=== PATIENT | male | born 1970 | race Caucasian/White ===

== ENCOUNTER 2016-11-16 09:07 | Inpatient (IN) | payer MEDICARE, MEDICAID ==
[~2016-11-16] VITALS: Ht 180.3 cm; Wt 86.5 kg
[2016-11-16] VITALS (11 sets, daily range): BP systolic 159–176; BP diastolic 83–110; PULSE 94–107; RESP 15–25; TEMP 97.2–98.5; O2SAT 95–100
[~2016-11-16 09:07] MED LIST: LISI-363 PO; OXYC-103 PO; PROM25SU8 PO
--- NOTE | 2016-11-16 09:22 | PD ---
HPI Chief Complaint: abdominal pain Time Seen by Provider: 09:15 Travel History International Travel<30 days: No Contact w/Intl Traveler<30days: No History of Present Illness HPI This is a 45-year-old male who presents to the emergency department with onset about 3 hours ago of epigastric pain described as chest pain, constant, severe, nonradiating, associated with some nausea but no vomiting. He's never had pain like this before. He denies any shortness of breath but it does hurt when he takes a deep breath. He does drink alcohol every day, 4-5 drinks, and was drinking yesterday. He has a history of hypertension but denies diabetes or hyperlipidemia. He does smoke cigarettes. PFSH Past Medical History Blood Disorders: No Anxiety: Yes Depression: No Cardiovascular Problems: No Chemotherapy: No Cerebrovascular Accident: Yes (POSSIBLE) Diminished Hearing: No Gastrointestinal Disorders: No Genitourinary: No Headaches: No Hypertension: Yes Immune Disorder: No Musculoskeletal: Yes (BACK PAIN) Neurologic: Yes (STROKE) Psychiatric: Yes (PTSD) Reproductive: No Respiratory: No Immunizations Current: No Migraines: No Past Surgical History Abdominal Surgery: No Arteriovenous Shunt: No Cardiac Surgery: No Ear Surgery: No Endocrine Surgery: No Eye Surgery: No Genitourinary Surgery: No Gynecologic Surgery: No Insulin Pump: No Joint Replacement: No Neurologic Surgery: No Pacemaker: No Thoracic Surgery: No Other Surgery: Yes Social History Alcohol Use: Yes (3 TIMES A WEEK) Tobacco Use: No Substance Use: No Allergies-Medications (Allergen,Severity, Reaction): Coded Allergies: Lobster (Verified Allergy, Severe, Throat swelling, 11/16/16) Reported Meds & Prescriptions Reported Meds & Active Scripts Active Reported Amlodipine (Amlodipine Besylate) 5 Mg Tab 5 Mg PO DAILY Cymbalta DR (Duloxetine HCl) 20 Mg Capdr 20 Mg PO DAILY Review of Systems Except as stated in HPI: all other systems reviewed are Neg Physical Exam Narrative GENERAL: Uncomfortable appearing, moaning in pain. SKIN: Warm and dry. HEAD: Atraumatic. Normocephalic. EYES: Pupils equal and round. No injection or drainage. ENT: Moist mucous membranes NECK: Trachea midline. CARDIOVASCULAR: Regular rate and rhythm. No murmur appreciated. RESPIRATORY: Clear to auscultation. Breath sounds equal bilaterally. GASTROINTESTINAL: Abdomen soft, tender to palpation in the upper abdomen, worse in the epigastrium with no rebound or guarding. MUSCULOSKELETAL: No obvious deformities. NEUROLOGICAL: Awake and alert. No obvious cranial nerve deficits. Moving all extremities. PSYCHIATRIC: Appropriate mood and affect; insight and judgment normal. Data Data Last Documented VS Vital Signs Date Time Temp Pulse Resp B/P Pulse Ox O2 Delivery O2 Flow Rate FiO2 11/16/16 11:00 102 18 162/83 99 Room Air 11/16/16 09:20 98.1 Orders Electrocardiogram (11/16/16:20) Complete Blood Count With Diff (11/16/16:20) Comprehensive Metabolic Panel (11/16/16:20) Troponin I (11/16/16:20) Lipase (11/16/16:20) Chest, Single Ap (11/16/16:20) Ecg Monitoring (11/16/16 09:20) Bilateral Bp Monitoring (11/16/16 09:20) Iv Access Insert/Monitor (11/16/16:20) Oximetry (11/16/16 09:20) Oxygen Administration (11/16/16 09:20) Sodium Chloride 0.9% Flush (Ns Flush) (11/16/16 09:30) Hydromorphone Pf Inj (Dilaudid Pf Inj) (11/16/16 09:30) Ondansetron Inj (Zofran Inj) (11/16/16 09:30) Sodium Chlor 0.9% 1000 Ml Inj (Ns 1000 M (11/16/16 09:30) Hydromorphone Pf Inj (Dilaudid Pf Inj) (11/16/16 11:15) Us Abdomen Gallbladder (11/16/16 ) Labs Laboratory Tests Test 11/16/16 09:20 White Blood Count 10.9 TH/MM3 Red Blood Count 5.05 MIL/MM3 Hemoglobin 16.7 GM/DL Hematocrit 48.7 % Mean Corpuscular Volume 96.5 FL Mean Corpuscular Hemoglobin 33.1 PG Mean Corpuscular Hemoglobin 34.3 % Concent Red Cell Distribution Width 12.9 % Platelet Count 255 TH/MM3 Mean Platelet Volume 8.0 FL Neutrophils (%) (Auto) 77.7 % Lymphocytes (%) (Auto) 15.8 % Monocytes (%) (Auto) 4.7 % Eosinophils (%) (Auto) 0.9 % Basophils (%) (Auto) 0.9 % Neutrophils # (Auto) 8.5 TH/MM3 Lymphocytes # (Auto) 1.7 TH/MM3 Monocytes # (Auto) 0.5 TH/MM3 Eosinophils # (Auto) 0.1 TH/MM3 Basophils # (Auto) 0.1 TH/MM3 CBC Comment DIFF FINAL Differential Comment Sodium Level 139 MEQ/L Potassium Level 3.4 MEQ/L Chloride Level 99 MEQ/L Carbon Dioxide Level 27.1 MEQ/L Anion Gap 12 MEQ/L Blood Urea Nitrogen 12 MG/DL Creatinine 1.00 MG/DL Estimat Glomerular Filtration 81 ML/MIN Rate Random Glucose 136 MG/DL Calcium Level 8.8 MG/DL Total Bilirubin 0.9 MG/DL Aspartate Amino Transf 88 U/L (AST/SGOT) Alanine Aminotransferase 131 U/L (ALT/SGPT) Alkaline Phosphatase 68 U/L Troponin I LESS THAN 0.02 NG/ML Total Protein 8.0 GM/DL Albumin 4.0 GM/DL Lipase 5208 U/L [facility] Medical Decision Making Medical Screen Exam Complete: Yes Emergency Medical Condition: Yes Interpretation(s) Afebrile, tachycardic, hypertensive No leukocytosis Mild hypokalemia Transaminitis Lipase is 5208 Differential Diagnosis Acute pancreatitis, gastritis, myocardial infarction, perforated ulcer Narrative Course This is a 45-year-old male who presents to the emergency department with acute onset abdominal pain that started this morning. He drinks alcohol daily, 3-4 drinks per day. He was placed on a monitor and an IV was established. Labs are obtained which demonstrate a lipase of 5208. He has no leukocytosis to suggest necrotizing pancreatitis. I don't think imaging is warranted at this time. I did order a right upper quadrant ultrasound to exclude gallstones as an etiology of his symptoms however I suspect this is alcoholic pancreatitis. Patient was given 2 mg of IV Dilaudid. He continued to have pain. He will be admitted for pain control and IV hydration. Diagnosis Primary Impression: Acute pancreatitis Admitting Information Admitting Physician Requests: Admit Dalila Gusman MD Nov 16, 2016 09:22
[2016-11-16] MEDS ORDERED: DULO20 PO (09:29)
[2016-11-16] MEDS ORDERED: AMLO5TAB2 PO (09:29)
[2016-11-16] MEDS ORDERED: SODIUM CHLORIDE 0.9% FLUSH 5 ML FLUSH IVF PRN (09:30)
[2016-11-16] MEDS ORDERED: HYDROmorphone HCL PF 1 MG/ML VIAL IV PUSH ONE ×2 (09:30→11:15)
[2016-11-16] MEDS ORDERED: ONDANSETRON HCL 4 MG/2 ML VIAL IV PUSH ONE (09:30)
[2016-11-16] MEDS ORDERED: SODIUM CHLOR 0.9% 1000 ML INJ 1,000 ML IV ONE (09:30)
[2016-11-16 09:41] LABS: AUTOMATED NEUTROPHIL # 8.5 TH/MM3 (1.8-7.7); BASOPHIL # 0.1 TH/MM3 (0-0.2); BASOPHIL % 0.9 % (0.0-2.0); EOSINOPHIL # 0.1 TH/MM3 (0-0.4); EOSINOPHIL % 0.9 % (0.0-4.0); HEMATOCRIT 48.7 % (39.0-51.0); HEMO FLAGS DIFF FINAL; LYMPH % 15.8 % (9.0-44.0); LYMPHOCYTE # 1.7 TH/MM3 (1.0-4.8); MEAN CELL VOLUME 96.5 FL (80.0-100.0); MEAN CORPUSCULAR HEMOGLOBIN 33.1 PG (27.0-34.0); MEAN CORPUSCULAR HGB CONC 34.3 % (32.0-36.0); MONO % 4.7 % (0.0-8.0); NEUT % 77.7 % (16.0-70.0); PLATELET COUNT 255 TH/MM3 (150-450); RED BLOOD COUNT 5.05 MIL/MM3 (4.50-5.90); RED CELL DISTRIBUTION WIDTH 12.9 % (11.6-17.2); WHITE BLOOD COUNT 10.9 TH/MM3 (4.0-11.0)
--- NOTE | 2016-11-16 09:44 | RADHPO ---
EXAM DATE/TIME: 11/16/2016 09:33 [facility] COMPARISON: No previous studies available for comparison. INDICATIONS : Sudden onset of severe chest pain this am MEDICAL HISTORY : None. SURGICAL HISTORY : None. ENCOUNTER: Initial ACUITY: 1 day PAIN SCORE: 10/10 LOCATION: Bilateral chest FINDINGS: A single view of the chest demonstrates the lungs to be symmetrically aerated without evidence of mas s, infiltrate or effusion. The cardiomediastinal contours are unremarkable. Osseous structures are intact. CONCLUSION: Normal examination for a patient of this age. Vaughn Sewell MD on November 16, 2016 at 9:42 Board Certified Radiologist. This report was verified electronically.
[2016-11-16 09:55] LABS: BLOOD UREA NITROGEN 12 MG/DL (7-18)
[2016-11-16 09:56] LABS: CHLORIDE 99 MEQ/L (98-107); GLOMERULAR FILTRATION RATE 81 ML/MIN (>89); POTASSIUM 3.4 MEQ/L (3.5-5.1); SODIUM (NA) 139 MEQ/L (136-145)
[2016-11-16 10:16] LABS: ANION GAP 12 MEQ/L (5-15)
[2016-11-16 10:29] LABS: ALKALINE PHOSPHATASE 68 U/L (45-117); ALT (GPT) 131 U/L (12-78); AST (GOT) 88 U/L (15-37); BICARBONATE 27.1 MEQ/L (21.0-32.0); TOTAL BILIRUBIN ADULT 0.9 MG/DL (0.2-1.0)
[2016-11-16] MEDS ORDERED: SODIUM CHLOR 0.9% 1000 ML INJ 1,000 ML IV SCH (11:36)
[2016-11-16] MEDS ORDERED: ACETAMINOPHEN 325 MG TAB PO PRN (11:45)
[2016-11-16] MEDS ORDERED: NALOXONE HCL 0.4 MG/ML AMP IV PRN (11:45)
[2016-11-16] MEDS ORDERED: ONDANSETRON HCL 4 MG/2 ML VIAL IVP PRN (11:45)
[2016-11-16] MEDS: HEPARIN SODIUM - SQ 10,000 UNITS/ML VIAL SQ SCH ×2 (11:58→20:17)
[2016-11-16] MEDS ORDERED: PILL SPLITTER OTHER PRN (12:00)
[2016-11-16] MEDS: HYDROmorphone HCL PF 1 MG/ML VIAL IV PRN ×3 (13:11→21:09)
--- NOTE | 2016-11-16 13:29 | RADHPO ---
EXAM DATE/TIME: 11/16/2016 12:27 [facility] COMPARISON: No previous studies available for comparison. INDICATIONS : Evaluate for cholelithiasis. Epigastric pain and nausea. MEDICAL HISTORY : Hypertension. Stroke. PTSD. SURGICAL HISTORY : None. ENCOUNTER: Initial ACUITY: 1 day PAIN SCORE: 10/10 LOCATION: Right upper quadrant MEASUREMENTS: LIVER: 17.1 cm length COMMON DUCT: 6 mm RIGHT KIDNEY: 9.9 x 6.8 x 7.1 cm FINDINGS: LIVER: The liver is enlarged and diffusely increased echogenicity. There is questionable recannulization of the umbilical vein there is no focal mass or ductal dilatation. There is no ascites. COMMON DUCT: No intraluminal mass or stone visualized. GALLBLADDER: Contains no stones, demonstrates no wall thickening or pericholecystic fluid. PANCREAS: The visualized portions are within normal limits. RIGHT KIDNEY: No evidence of hydronephrosis, stone, or mass. CONCLUSION: 1. The gallbladder is unremarkable in appearance with no evidence of cholelithiasis. 2. The liver is enlarged with increased echogenicity. There is no focal mass. This questionable recan nulization of the umbilical vein. The left lobe was not well-visualized. Hussain Love MD on November 16, 2016 at 13:21 Board Certified Radiologist. This report was verified electronically.
--- NOTE | 2016-11-16 15:25 | EKG ---
Date Performed: 11/16/2016 Time Performed: 09:11:18 PTAGE: 45 years EKG: Sinus tachycardia. Left axis deviation Possible inferior infarct - age undetermined Abnorma l ECG Compared to prior electrocardiogram,Rate has increased. PREVIOUS TRACING : 02/18/2007 22.21 DOCTOR: Sheldon Loredo Interpretating Date/Time 11/16/2016 15:23:15
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
[2016-11-16] MEDS ORDERED: ENALAPRILAT 1.25 MG/ML VIAL IV PUSH PRN (17:00)
[2016-11-16] MEDS: NS + KCL 20 MEQ INJ 1,000 ML IV SCH (17:06)
[2016-11-16] MEDS: SODIUM CHLORIDE 0.9% FLUSH 5 ML FLUSH FLUSH SCH (20:17)
[2016-11-17] VITALS (8 sets, daily range): BP systolic 133–156; BP diastolic 84–95; PULSE 84–96; RESP 16–22; TEMP 97.9–98.6; O2SAT 93–96
[2016-11-17] MEDS: NS + KCL 20 MEQ INJ 1,000 ML IV SCH ×3 (01:08→16:15)
[2016-11-17] MEDS: HYDROmorphone HCL PF 1 MG/ML VIAL IV PRN ×6 (01:09→21:36)
[2016-11-17] MEDS: HEPARIN SODIUM - SQ 10,000 UNITS/ML VIAL SQ SCH ×3 (05:11→20:07)
[2016-11-17 06:02] LABS: POTASSIUM 3.9 MEQ/L (3.5-5.1)
[2016-11-17 06:04] LABS: AUTOMATED NEUTROPHIL # 5.2 TH/MM3 (1.8-7.7); BASOPHIL % 0.6 % (0.0-2.0); EOSINOPHIL # 0.2 TH/MM3 (0-0.4); EOSINOPHIL % 2.9 % (0.0-4.0); HEMATOCRIT 44.9 % (39.0-51.0); HEMO FLAGS DIFF FINAL; LYMPH % 17.7 % (9.0-44.0); LYMPHOCYTE # 1.3 TH/MM3 (1.0-4.8); MEAN CELL VOLUME 97.8 FL (80.0-100.0); MEAN CORPUSCULAR HEMOGLOBIN 32.5 PG (27.0-34.0); MEAN CORPUSCULAR HGB CONC 33.2 % (32.0-36.0); MONO % 5.4 % (0.0-8.0); NEUT % 73.4 % (16.0-70.0); PLATELET COUNT 201 TH/MM3 (150-450); PROTHROMBIN TIME - PATIENT 10.7 SEC (9.8-11.6); RED BLOOD COUNT 4.59 MIL/MM3 (4.50-5.90); RED CELL DISTRIBUTION WIDTH 12.8 % (11.6-17.2); WHITE BLOOD COUNT 7.1 TH/MM3 (4.0-11.0)
[2016-11-17 06:32] LABS: BICARBONATE 26.6 MEQ/L (21.0-32.0); INDIRECT BILIRUBIN 1.1 MG/DL (0.0-0.8); TOTAL BILIRUBIN ADULT 1.4 MG/DL (0.2-1.0)
[2016-11-17] MEDS ORDERED: amLODIPine BESYLATE 5 MG TAB PO SCH (09:00)
[2016-11-17] MEDS: SODIUM CHLORIDE 0.9% FLUSH 5 ML FLUSH FLUSH SCH ×2 (09:00→20:07)
--- NOTE | 2016-11-17 09:03 | HHI.PR ---
Subjective Remarks Patient seen and examined today with Dr. Garcia. Patient states that he is doing better. Pain is less than yesterday but still around 6 out of 10 according to the patient but then he stated Pain is controlled !. He does have some appetite back but does not want to eat anything big meals. Objective Vitals Vital Signs Date Time Temp Pulse Resp B/P Pulse Ox O2 Delivery O2 Flow Rate FiO2 11/17/16 08:30 95 21 11/17/16 08:00 92 11/17/16 08:00 98.6 96 22 152/87 95 11/17/16 04:00 98.3 95 22 133/91 95 11/17/16 00:00 94 11/17/16 00:00 98.5 92 18 133/92 95 11/16/16 20:20 97 21 11/16/16 20:00 94 11/16/16 20:00 98.5 100 22 165/95 95 11/16/16 17:24 98 20 175/90 11/16/16 17:00 98 25 11/16/16 16:35 97.2 100 15 159/110 97 11/16/16 16:30 98 11/16/16 14:40 105 16 169/98 98 Room Air 11/16/16 14:02 98 16 160/99 100 Room Air 11/16/16 13:41 16 11/16/16 11:45 18 11/16/16 11:00 102 18 162/83 99 Room Air 11/16/16 10:10 18 11/16/16 09:25 97 Room Air 11/16/16 09:25 97 Room Air 11/16/16 09:20 98.1 107 18 176/101 97 I/O 11/16/16 11/16/16 11/16/16 11/17/16 11/17/16 11/17/16 07:00 15:00 23:00 07:00 15:00 23:00 Intake Total 1000 ml 727 ml 826 ml Output Total 450 ml 675 ml Balance 1000 ml 277 ml 151 ml Intake Oral 0 ml 0 ml IV Total 1000 ml 727 ml 826 ml Output Urine Total 450 ml 675 ml # Voids 3 Result Diagram: 11/17/16 0543 11/17/1643 Objective Remarks GENERAL: Well-developed, well-nourished, in no acute distress. alert and orientated HEENT: Head is normocephalic without any lesions or masses noted. Facial features are symmetric. Eyes: Extraocular muscles are intact. Conjunctivae were clear. NECK: Supple without any masses. Trachea midline no deviation. No JVD, CARDIAC: Regular rhythm, regular rate. S1/S2 are heard. No murmurs gallops or rubs. LUNGS: Clear to auscultation bilaterally. No wheeze, rhonchi or rales. No use of accessory muscles on inspiration or expiration. ABDOMEN: Soft, mild diffuse tenderness noted in epigastric, bilateral upper quadrants. Nondistended. Bowel sounds heard in all 4 quadrants. No organomegaly or masses. Negative rebound, negative guarding EXTREMITIES: No edema, pulses are equal bilaterally. No cyanosis or clubbing NEUROLOGY: Mood and affect appear appropriate. Cranial nerves II through XII grossly intact. Moving all extremities, speech is clear Urinary Catheter: No Vascular Central Line Catheter: No A/P Assessment and Plan Acute epigastric abdominal pain with elevated lipase 5208: Improving. Likely alcoholic pancreatitis until proven otherwise. Start clear liquid diet, IV fluids, pain control with Dilaudid. Normal triglyceride level, liver ultrasound was performed no gallstone but increased liver echogenicity, along with increase direct and indirect bilirubin as well as LFTs initially which is trending down, I will order CT of the abdomen with oral contrast along with hepatitis panel to assess for any underlying liver pathology, doesn't seem to be related to his pancreatitis at this point. Patient can probably follow up with the welder/installer as an outpatient when he stable --Increase LFT transaminases with direct and indirect bilirubin: Alkaline phosphatase within normal limits unlikely cholestasis, check hepatitis panel, check CT abdomen as above Chronic alcohol use: Patient does have mildly elevated liver enzymes, now with elevated lipase. Patient was counseled extensively on discontinuation of alcohol use. Notified him that this is alcohol pancreatitis in all his current intake is 1 alcoholic beverage and he could be back in the same predicament. Patient states that he does understand and plans on quitting at this time Uncontrolled hypertension: Resume amlodipine, added Vasotec as needed monitor blood pressure. Increase to amlodipine 10 mg daily DVT prevention: Sequential compression devices. Heparin Written by Shahzad Burrows PA-C, acting as scribe for Dr. Garcia on 11/17/16 at. The documentation accurately reflects the work and decisions performed face-to- face by Dr. Garcia on 11/17/16 at Discharge Planning The patient continues to improve alveolar discharge patient tomorrow. Shahzad Burrows Nov 17, 2016 09:03 Anthony Garcia MD Nov 17, 2016 13:09
[2016-11-17] MEDS ORDERED: LORazepam 2 MG/ML VIAL IV PUSH PRN (09:15)
[2016-11-17] MEDS ORDERED: PNEUMOCOCCAL POLYVALENT INJ 25 MCG/0.5 ML SYR IM ONE (10:00)
[2016-11-17] MEDS: FOLIC ACID 1 MG TAB PO SCH (11:27)
[2016-11-17] MEDS: THIAMINE HCL 100 MG TAB PO SCH (11:27)
[2016-11-17] MEDS ORDERED: DIATRIZOATE MEGLUM/DIATRIZOATE SOD 9 ML CUP PO ONE (11:45)
[2016-11-17 13:34] LABS: GLUCOSE,URINE NEG (NEG); KETONE, URINE 15 mg/dL (NEG); NITRITE,URINE NEG (NEG); PH, URINE 6.5 (5.0-8.5)
[2016-11-17 13:35] LABS: BLOOD, URINE MOD (NEG)
[2016-11-17 13:38] LABS: METHOD OF COLLECTION CLEAN CATCH; URINE COLOR STRAW (YELLW/STRAW); WBC, URINE 0-2 /hpf (0-5)
[2016-11-17 13:39] LABS: COMMENT (UR) CULT NOT INDICATED; CULTURE IF INDICATED CULT NOT INDICATED; SQUAMOUS EPITHELIAL CELL URINE 0-5 /hpf (0-5)
--- NOTE | 2016-11-17 21:12 | RADHPO ---
EXAM DATE/TIME: 11/17/2016 19:49 [facility] COMPARISON: US ABDOMEN - GALLBLADDER, November 16, 2016, 12:27. INDICATIONS : Diffuse abdominal pain. ORAL CONTRAST: Prescribed oral contrast ingested. RADIATION DOSE: 20.96 CTDIvol (mGy) MEDICAL HISTORY : Hypertension. Pancreatitis. SURGICAL HISTORY : None. ENCOUNTER: Initial ACUITY: 2 days PAIN SCALE: 6/10 LOCATION: Abdomen. TECHNIQUE: Volumetric scanning of the abdomen and pelvis was performed. Using automated exposure control and ad justment of the mA and/or kV according to patient size, radiation dose was kept as low as reasonably achievable to obtain optimal diagnostic quality images. FINDINGS: LOWER LUNGS: The visualized lower lungs are clear. LIVER: Severe hepatic steatosis without lesion. There is no dilation of the biliary tree. No calcified gal lstones. SPLEEN: Normal size without lesion. PANCREAS: Slight inflammatory changes along the pancreatic head. KIDNEYS: Normal in size and shape. There is no mass, stone, or hydronephrosis. ADRENAL GLANDS: Within normal limits. VASCULAR: There is no aortic aneurysm. BOWEL/MESENTERY: Scattered diverticulosis. There is no free intraperitoneal air or fluid. Scattered inflammatory [place] in the retroperitoneum with fluid tracking in the pelvis. ABDOMINAL WALL: Within normal limits. RETROPERITONEUM: There is no lymphadenopathy. BLADDER: No wall thickening or mass. REPRODUCTIVE: Within normal limits. INGUINAL: There is no lymphadenopathy or hernia. MUSCULOSKELETAL: Within normal limits for patient age. CONCLUSION: 1. Severe hepatic steatosis. 2. Slight inflammatory changes along the pancreatic head could be related to pancreatitis in the righ t clinical setting. There is also some slight inflammatory change in the retroperitoneum with some mi nimal fluid tracking in the pelvis. Correlation with amylase and lipase levels recommended. 3. Scattered diverticulosis. Neal Coleman MD on November 17, 2016 at 21:02 Board Certified Radiologist. This report was verified electronically.
[2016-11-18] VITALS: BP 150/95; PULSE 84; RESP 22; TEMP 99; O2SAT 95
[2016-11-18] MEDS: NS + KCL 20 MEQ INJ 1,000 ML IV SCH ×3 (00:37→17:02)
[2016-11-18] MEDS: HYDROmorphone HCL PF 1 MG/ML VIAL IV PRN ×5 (01:45→20:08)
[2016-11-18 04:00] VITALS: BP 129/79; PULSE 80; RESP 16; TEMP 98.2; O2SAT 95
[2016-11-18] MEDS: HEPARIN SODIUM - SQ 10,000 UNITS/ML VIAL SQ SCH ×3 (04:42→19:52)
[2016-11-18 05:22] LABS: CHLORIDE 102 MEQ/L (98-107); POTASSIUM 3.8 MEQ/L (3.5-5.1); SODIUM (NA) 139 MEQ/L (136-145)
[2016-11-18 05:27] LABS: ANION GAP 13 MEQ/L (5-15); AUTOMATED NEUTROPHIL # 4.4 TH/MM3 (1.8-7.7); BASOPHIL % 0.3 % (0.0-2.0); BLOOD UREA NITROGEN 8 MG/DL (7-18); EOSINOPHIL # 0.3 TH/MM3 (0-0.4); EOSINOPHIL % 5.4 % (0.0-4.0); HEMATOCRIT 46.6 % (39.0-51.0); HEMO FLAGS DIFF FINAL; LYMPH % 20.3 % (9.0-44.0); LYMPHOCYTE # 1.3 TH/MM3 (1.0-4.8); MEAN CELL VOLUME 97.6 FL (80.0-100.0); MEAN CORPUSCULAR HEMOGLOBIN 32.3 PG (27.0-34.0); MEAN CORPUSCULAR HGB CONC 33.1 % (32.0-36.0); PLATELET COUNT 211 TH/MM3 (150-450); RED BLOOD COUNT 4.78 MIL/MM3 (4.50-5.90); RED CELL DISTRIBUTION WIDTH 12.7 % (11.6-17.2); WHITE BLOOD COUNT 6.4 TH/MM3 (4.0-11.0)
[2016-11-18 05:30] LABS: ALT (GPT) 68 U/L (12-78); AST (GOT) 30 U/L (15-37); GLOMERULAR FILTRATION RATE 95 ML/MIN (>89)
[2016-11-18 05:31] LABS: TOTAL BILIRUBIN ADULT 1.9 MG/DL (0.2-1.0)
[2016-11-18 05:33] LABS: ALKALINE PHOSPHATASE 58 U/L (45-117)
[2016-11-18 08:00] VITALS: BP 155/88; PULSE 82; PULSE 83; RESP 13; TEMP 98.5; O2SAT 99
--- NOTE | 2016-11-18 08:50 | HHI.PR ---
Subjective Remarks Patient seen and examined today with Dr. Garcia. Patient states he is doing better. His appetite has returned. Tolerating liquids without any complications. States that the pain is starting referred down to the right lower quadrant. Discussed with patient the results of the CT scan. Objective Vitals Vital Signs Date Time Temp Pulse Resp B/P Pulse Ox O2 Delivery O2 Flow Rate FiO2 11/18/16 04:00 98.2 80 16 129/79 95 11/18/16 02:15 16 11/18/16 00:00 99.0 84 22 150/95 95 11/17/16 20:17 96 21 11/17/16 20:00 87 11/17/16 20:00 98.6 88 19 140/84 95 11/17/16 16:00 98.3 84 16 141/95 93 11/17/16 12:00 97.9 84 18 156/91 94 I/O 11/17/16 11/17/16 11/17/16 11/18/16 11/18/16 11/18/16 07:00 15:00 23:00 07:00 15:00 23:00 Intake Total 826 ml 1598 ml 2025 ml 924 ml Output Total 675 ml 900 ml 1350 ml 1600 ml Balance 151 ml 698 ml 675 ml -676 ml Intake Oral 0 ml 520 ml 1000 ml 0 ml IV Total 826 ml 1078 ml 1025 ml 924 ml Output Urine Total 675 ml 900 ml 1350 ml 1600 ml # Bowel Movements 0 0 0 Result Diagram: 11/18/16 0425 11/18/16424 Objective Remarks GENERAL: Well-developed, well-nourished, in no acute distress. alert and orientated HEENT: Head is normocephalic without any lesions or masses noted. Facial features are symmetric. Eyes: Extraocular muscles are intact. Conjunctivae were clear. NECK: Supple without any masses. Trachea midline no deviation. No JVD, CARDIAC: Regular rhythm, regular rate. S1/S2 are heard. No murmurs gallops or rubs. LUNGS: Clear to auscultation bilaterally. No wheeze, rhonchi or rales. No use of accessory muscles on inspiration or expiration. ABDOMEN: Soft, bowel pain improving. Localizing right lower quadrant. Nondistended. Bowel sounds heard in all 4 quadrants. No organomegaly or masses. Negative rebound, negative guarding EXTREMITIES: No edema, pulses are equal bilaterally. No cyanosis or clubbing NEUROLOGY: Mood and affect appear appropriate. Cranial nerves II through XII grossly intact. Moving all extremities, speech is clear Assessment to: Continue Vascular Central Line Catheter: No A/P Assessment and Plan Acute epigastric abdominal pain with elevated lipase 5208: Improving. Likely alcoholic pancreatitis until proven otherwise. Start full liquid diet, if tolerating liquid diet was advanced to full consistency today. IV fluids, pain control with Dilaudid. Triglyceride 128., liver ultrasound was performed which did not indicate any acute abnormality. Pancreas was without any acute abnormality. Continue to trend lipase level which is improving. CT scan was done of the abdomen which did show severe hepatic steatosis. Inflammation of the pancreas. Chronic alcohol use: Patient does have mildly elevated liver enzymes, now with elevated lipase. Patient was counseled extensively on discontinuation of alcohol use. Notified him that this is alcohol pancreatitis in all his current intake is 1 alcoholic beverage and he could be back in the same predicament. Patient states that he does understand and plans on quitting at this time. Continues with bilirubin elevation. Hepatitis panel is pending. CT scan does indicate severe hepatic steatosis. Discussed with patient likely cirrhosis. Will need follow-up with GI in outpatient setting for further evaluation and management. Will likely need biopsy for confirmation. Uncontrolled hypertension: Improved with increase of amlodipine Vasotec as needed monitor blood pressure. DVT prevention: Sequential compression devices. Heparin Written by Shahzad Burrows PA-C, acting as scribe for Dr. Garcia on 11/18/16 at 1230. The documentation accurately reflects the work and decisions performed face-to- face by Dr. Garcia on 11/18/16 at 1230 Discharge Planning Due to the persistence of abdominal discomfort will continue monitoring patient overnight today, possibly discharge in a.m. if improved Shahzad Burrows Nov 18, 2016 08:50 Anthony Garcia MD Nov 18, 2016 13:12
[2016-11-18] MEDS: SODIUM CHLORIDE 0.9% FLUSH 5 ML FLUSH FLUSH SCH ×2 (09:00→19:52)
[2016-11-18] MEDS: THIAMINE HCL 100 MG TAB PO SCH (09:07)
[2016-11-18] MEDS: FOLIC ACID 1 MG TAB PO SCH (09:07)
[2016-11-18 12:00] VITALS: BP 159/85; PULSE 92; RESP 18; TEMP 98
[2016-11-18] MEDS: PANTOPRAZOLE SOD 40 MG DELAYED RELEASE TAB PO SCH (12:17)
[2016-11-18 16:00] VITALS: BP 126/89; PULSE 100; RESP 20; TEMP 98.7
[2016-11-18 20:00] VITALS: BP 149/94; PULSE 90; PULSE 96; RESP 20; TEMP 98.9; O2SAT 95
[2016-11-18] MEDS: chlordiazePOXIDE 25 MG CAP PO PRN (20:09)
[2016-11-19] VITALS (8 sets, daily range): BP systolic 123–166; BP diastolic 87–99; PULSE 85–118; RESP 18–20; TEMP 96.8–99; O2SAT 95–99
[2016-11-19] MEDS: HYDROmorphone HCL PF 1 MG/ML VIAL IV PRN ×4 (00:10→22:07)
[2016-11-19] MEDS: NS + KCL 20 MEQ INJ 1,000 ML IV SCH ×3 (00:22→18:09)
[2016-11-19] MEDS: HEPARIN SODIUM - SQ 10,000 UNITS/ML VIAL SQ SCH ×3 (04:29→21:31)
[2016-11-19] MEDS: SODIUM CHLORIDE 0.9% FLUSH 5 ML FLUSH FLUSH PRN ×2 (04:30→22:07)
[2016-11-19] MEDS: chlordiazePOXIDE 25 MG CAP PO PRN ×2 (04:30→16:49)
[2016-11-19 05:29] LABS: CHLORIDE 104 MEQ/L (98-107); POTASSIUM 3.7 MEQ/L (3.5-5.1); SODIUM (NA) 140 MEQ/L (136-145)
[2016-11-19 05:34] LABS: ANION GAP 11 MEQ/L (5-15); BICARBONATE 25.3 MEQ/L (21.0-32.0); BLOOD UREA NITROGEN 12 MG/DL (7-18)
[2016-11-19 05:37] LABS: ALT (GPT) 63 U/L (12-78); AST (GOT) 30 U/L (15-37); GLOMERULAR FILTRATION RATE 100 ML/MIN (>89)
[2016-11-19 05:40] LABS: ALKALINE PHOSPHATASE 55 U/L (45-117)
[2016-11-19] MEDS: FOLIC ACID 1 MG TAB PO SCH (08:07)
[2016-11-19] MEDS: THIAMINE HCL 100 MG TAB PO SCH (08:07)
[2016-11-19] MEDS: PANTOPRAZOLE SOD 40 MG DELAYED RELEASE TAB PO SCH (08:07)
[2016-11-19] MEDS: HYDROmorphone HCL 2 MG TAB PO PRN ×2 (08:12→16:50)
[2016-11-19] MEDS: SODIUM CHLORIDE 0.9% FLUSH 5 ML FLUSH FLUSH SCH ×2 (08:19→21:31)
--- NOTE | 2016-11-19 12:31 | HHI.PR ---
Subjective Remarks Follow-up for pancreatitis. Patient states he ate. He denies having any pain. Discussed with RN who states he voided 2 L. States he has been ambulating. Objective Vitals Vital Signs Date Time Temp Pulse Resp B/P Pulse Ox O2 Delivery O2 Flow Rate FiO2 11/19/16 04:00 99.0 85 18 146/93 95 11/19/16 00:00 99.0 86 20 154/90 95 11/18/16 20:00 95 21 11/18/16 20:00 98.9 96 20 149/94 95 11/18/16 20:00 90 11/18/16 16:00 98.7 100 20 126/89 I/O 11/18/16 11/18/16 11/18/16 11/19/16 11/19/16 11/19/16 07:00 15:00 23:00 07:00 15:00 23:00 Intake Total 924 ml 1780 ml 1620 ml 1400 ml Output Total 1600 ml 1450 ml 1100 ml 1600 ml Balance -676 ml 330 ml 520 ml -200 ml Intake Oral 0 ml 960 ml 620 ml 400 ml IV Total 924 ml 820 ml 1000 ml 1000 ml Output Urine Total 1600 ml 1450 ml 1100 ml 1600 ml Stool Total 0 ml # Bowel Movements 0 1 0 Result Diagram: 11/18/16 0425 11/19/16 0418 Imaging Last Impressions Abdomen/Pelvis CT 11/17/16 0000 Signed Impressions: Service Date/Time: Thursday, November 17, 2016 19:49 - CONCLUSION: 1. Severe hepatic steatosis. 2. Slight inflammatory changes along the pancreatic head could be related to pancreatitis in the right clinical setting. There is also some slight inflammatory change in the retroperitoneum with some minimal fluid tracking in the pelvis. Correlation with amylase and lipase levels recommended. 3. Scattered diverticulosis. Neal Coleman MD Chest X-Ray 11/16/16 0920 Signed Impressions: Service Date/Time: Wednesday, November 16, 2016 09:33 - CONCLUSION: Normal examination for a patient of this age. Vaughn Sewell MD Gall Bladder Ultrasound 11/16/16 0000 Signed Impressions: Service Date/Time: Wednesday, November 16, 2016 12:27 - CONCLUSION: 1. The gallbladder is unremarkable in appearance with no evidence of cholelithiasis. 2. The liver is enlarged with increased echogenicity. There is no focal mass. This questionable recannulization of the umbilical vein. The left lobe was not well-visualized. Hussain Love MD Objective Remarks GENERAL: Well-nourished, well-developed patient in no apparent distress. SKIN: Warm and dry. HEAD: Atraumatic. Normocephalic. EYES: No scleral icterus. No injection or drainage. CARDIOVASCULAR: Regular rate and rhythm. RESPIRATORY: No accessory muscle use. Clear to auscultation. Breath sounds equal bilaterally. GASTROINTESTINAL: Abdomen soft, non-tender, nondistended. NEUROLOGICAL: Awake and alert. Motor grossly within normal limits. Normal speech. PSYCHIATRIC: Appropriate mood and affect; insight and judgment normal. Urinary Catheter: No Vascular Central Line Catheter: No A/P Problem List: (1) Acute pancreatitis ICD Code: K85.90 Status: Acute (2) Abdominal pain ICD Code: R10.9 Status: Acute (3) Hypertension ICD Code: I10 Status: Acute (4) Alcohol use ICD Code: Z78.9 Status: Acute Assessment and Plan Acute epigastric abdominal pain: Elevated lipase 5208. Lipase was improving but increased again this afternoon to 1264 which may be attributed to advanced diet. Spoke with GI today and advises restarting clear liquid diet. Repeat lipase in the morning. Patient to continue IV fluids NS + KCl. Likely alcoholic pancreatitis. Triglycerides 128. Liver ultrasound was performed which did not indicate any acute abnormality. Pancreas was without any acute abnormality. CT scan of the abdomen did show severe hepatic steatosis and inflammation of the pancreas. Chronic alcohol use: Patient does have mildly elevated liver enzymes, now with elevated lipase. Bilirubin improved. Patient was counseled extensively on discontinuation of alcohol use. Patient states that he does understand and plans on quitting at this time. Hepatitis panel negative. CT scan does indicate severe hepatic steatosis. Discussed with patient likely cirrhosis. Will need follow-up with GI in outpatient setting for further evaluation and management. Will likely need biopsy for confirmation. Uncontrolled hypertension: Improved with increase of amlodipine. Will stop amlodipine due to possible effect on liver. Start Lisinopril 20 mg po daily. Anxiety: Patient takes Cymbalta. Will not restart due to possible effect on the liver. DVT prevention: Sequential compression devices, heparin. Written by Jammie Cruz PA-C acting as scribe for Dr. Garcia on 11/19/16 at 1217. RN later called stating patient is anxious. He is already receiving Librium 25 mg tid prn agitation/withdrawal. She states he was given a dose of Ativan this morning and she requests this. I informed the nurse that I am not going to be starting Ativan in addition to the Librium. Will start low dose Vistaril as needed for anxiety/insomnia. Discharge Planning Possibly discharge tomorrow if lipase improved. If continues to worsen may need further GI involvement. Problem Qualifiers (1) Acute pancreatitis: Qualified Code: K85.20 - Alcohol-induced acute pancreatitis, unspecified complication status (2) Abdominal pain: Qualified Code: R10.13 - Epigastric pain (3) Hypertension: Qualified Code: I15.9 - Secondary hypertension Jammie Cruz Nov 19, 2016 12:31 Anthony Garcia MD Nov 20, 2016 11:41
[2016-11-19] MEDS: LISINOPRIL 20 MG TAB PO SCH (12:45)
[2016-11-19] MEDS ORDERED: LISI-515 PO (13:12)
[2016-11-19] MEDS ORDERED: hydrOXYzine PAMOATE 25 MG CAP PO PRN (19:03)
[2016-11-20] MEDS: chlordiazePOXIDE 25 MG CAP PO PRN (02:20)
[2016-11-20] MEDS: HYDROmorphone HCL PF 1 MG/ML VIAL IV PRN ×2 (02:21→06:24)
[2016-11-20] MEDS: SODIUM CHLORIDE 0.9% FLUSH 5 ML FLUSH FLUSH PRN ×2 (02:21→06:24)
[2016-11-20] MEDS: NS + KCL 20 MEQ INJ 1,000 ML IV SCH (02:22)
[2016-11-20 04:00] VITALS: BP 127/98; PULSE 95; RESP 20; TEMP 96.5; O2SAT 96
[2016-11-20] MEDS: HEPARIN SODIUM - SQ 10,000 UNITS/ML VIAL SQ SCH (04:09)
[2016-11-20 08:00] VITALS: BP 142/98; PULSE 91; RESP 20; TEMP 97.8; O2SAT 95
[2016-11-20] MEDS: PANTOPRAZOLE SOD 40 MG DELAYED RELEASE TAB PO SCH (08:25)
[2016-11-20] MEDS: LISINOPRIL 20 MG TAB PO SCH (08:25)
[2016-11-20] MEDS: FOLIC ACID 1 MG TAB PO SCH (08:25)
[2016-11-20] MEDS: SODIUM CHLORIDE 0.9% FLUSH 5 ML FLUSH FLUSH SCH (08:25)
[2016-11-20] MEDS: THIAMINE HCL 100 MG TAB PO SCH (08:25)
--- NOTE | 2016-11-20 08:57 | HHI.DS ---
Discharge Summary Admission Date Nov 17, 2016 at 13:10 Discharge Date: Nov 20, 2016 Admitting Diagnosis acute pancreatitis (1) Acute pancreatitis ICD Code: K85.90 Diagnosis: Principal (2) Abdominal pain ICD Code: R10.9 Diagnosis: Principal (3) Hypertension ICD Code: I10 Diagnosis: Secondary (4) Alcohol use ICD Code: Z78.9 Diagnosis: Secondary Procedures None Brief History - From Admission 45-year-old male with known history of hypertension who presented to the hospital because acute onset abdominal pain. Patient states that his normal state of health until 5:30 this morning when he woke up with severe epigastric abdominal pain. Patient states that he is never experienced that much pain in his life so he came to the hospital for evaluation. Pain is located in the epigastric region without any radiation to his back. Pain was 10 /10 on a pain scale. Nothing he did made it better or made it worse. The patient states that he is never had this pain before. The patient does drink 5 alcoholic beverage drinks daily. Patient had workup done and was found to have elevated lipase level and is recommended by the ER physician the patient be admitted for pancreatitis. The patient denies any chest pain, nausea, vomiting , radiation of pain, diarrhea, constipation, melena, hematochezia. CBC/BMP: 11/18/16 0425 11/19/16 0418 Significant Findings Laboratory Tests Test 11/17/16 11/18/16 11/19/16 11/19/16 13:25 04:25 04:18 15:20 Urine Ketones 15 mg/dL (NEG) Urine Occult Blood MOD (NEG) Urine RBC 10-14 /hpf (0-3) Eosinophils (%) (Auto) 5.4 % (0.0-4.0) Total Bilirubin 1.9 MG/DL (0.2-1.0) Albumin 3.3 GM/DL 3.2 GM/DL (3.4-5.0) (3.4-5.0) Lipase 919 U/L 1009 U/L 1264 U/L (73-393) (73-393) (73-393) Test 11/20/16 06:18 Lipase 673 U/L (73-393) PE at Discharge GENERAL: Well-nourished, well-developed patient in no apparent distress. SKIN: Warm and dry. HEAD: Atraumatic. Normocephalic. EYES: No scleral icterus. No injection or drainage. CARDIOVASCULAR: Regular rate and rhythm. RESPIRATORY: No accessory muscle use. Clear to auscultation. Breath sounds equal bilaterally. GASTROINTESTINAL: Abdomen soft, non-tender, nondistended. NEUROLOGICAL: Awake and alert. Motor grossly within normal limits. Normal speech. PSYCHIATRIC: Appropriate mood and affect; insight and judgment normal. Hospital Course 45 years old male admitted with Acute epigastric abdominal pain Elevated lipase 5208, patient started on IV fluids NS + KCl. Likely alcoholic pancreatitis. Triglycerides 128. Liver ultrasound was performed which did not indicate any acute abnormality. Pancreas was without any acute abnormality. CT scan of the abdomen did show severe hepatic steatosis and inflammation of the pancreas. His symptoms gradually improved over the hospital course, however. Lipase was improving initially dropped to 900 but increased again to 1264 which may be attributed to advanced diet. Spoke with GI and advises restarting clear liquid diet. Repeat lipase in the morning which indeed dropped to 600, again resume diet and monitor through the day She also has Chronic alcohol use Patient does have mildly elevated liver enzymes , now with elevated lipase. Bilirubin improved. Patient was counseled extensively on discontinuation of alcohol use. Patient states that he does understand and plans on quitting at this time. Hepatitis panel negative. CT scan does indicate severe hepatic steatosis. Discussed with patient likely cirrhosis. Will need follow-up with GI in outpatient setting for further evaluation and management. Will likely need biopsy for confirmation. Uncontrolled hypertension: Patient started on amlodipine however will stop that due to possible effect on the liver. Start Lisinopril 20 mg po daily. Anxiety: Patient takes Cymbalta. Will not restart due to possible effect on the liver. DVT prevention: Sequential compression devices, heparin. Pt Condition on Discharge: Fair Discharge Disposition: Discharge Home Discharge Time: <= 30 minutes Discharge Instructions DIET: Follow Instructions for: Heart Healthy Diet Additional Diet Instructions: Avoid fatty food Activities you can perform: Weight Bearing as Luz Follow up Referrals: Gastroenterology - 1 Week with Von Pulido MD New Medications: Lisinopril (Lisinopril) 20 Mg Tab 20 MG PO DAILY Blood Pressure Management #30 TAB Discontinued Medications: Amlodipine (Amlodipine) 5 Mg Tab 5 MG PO DAILY Blood Pressure Management #[address] (Rosalie TOM) 20 Mg Capdr 20 MG PO DAILY #30 Ref 0 CAP Anthony Garcia MD Nov 20, 2016 08:57
[2016-11-20] MEDS ORDERED: VITA100T2 PO (09:36)
[2016-11-20] MEDS ORDERED: CHLO25CA2 PO (09:36)
[2016-11-20] MEDS ORDERED: OXYC1CAP PO (09:36)
[2016-11-20] MEDS ORDERED: FOLI1TAB4 PO (09:36)
== END 2016-11-20 09:54 | disposition home or self-care (01) | DRG 440 ==
LOC: PHED 09:07 → INTOOBSV 11:24 → PHEDA 11:24 → PHICU 16:31 → OBSVTOIN 11-17 13:10 → PH3A 11-19 19:18
PROVIDERS: ADMIT Hospitalist; ATTEND Hospitalist
DX: K85.20 Alcohol induced acute pancreatitis without necrosis or infection (principal); K76.0 Fatty (change of) liver, not elsewhere classified; Z72.89 Other problems related to lifestyle; I10 Essential (primary) hypertension; F32.9 Major depressive disorder, single episode, unspecified; F43.10 Post-traumatic stress disorder, unspecified; F41.9 Anxiety disorder, unspecified; F12.90 Cannabis use, unspecified, uncomplicated; F17.210 Nicotine dependence, cigarettes, uncomplicated; Z89.511 Acquired absence of right leg below knee; Z23 Encounter for immunization
CPT/HCPCS: 71010; 74176; 76705; 80048; 80053; 80074; 80076; 81001; 82948; 83690; 84478; 84484; 85025; 85610; 90471; 90732; 93005; 96361; 96374; 96375; 96376; G0009; G0378; J1170; J1644; J2060; J2405; J3480; J7030; Q0177; Q9963